=== PATIENT | female | born 1960 | race Caucasian/White ===

== ENCOUNTER 2024-09-08 14:27 | Emergency (ER) | payer OTHER, MEDICAID ==
[~2024-09-08] VITALS: Ht 167.6 cm; Wt 61.2 kg
[2024-09-08 14:57] VITALS: BP 160/76; PULSE 83; RESP 17; TEMP 97.8; O2SAT 94
[2024-09-08 17:59] VITALS: BP 136/74; PULSE 89; RESP 17; TEMP 98.2; O2SAT 98
== END 2024-09-08 18:00 | disposition home or self-care (01) ==
LOC: MED 14:27
DX: S01.01XA Laceration without foreign body of scalp, initial encounter (principal); M54.2 Cervicalgia; I10 Essential (primary) hypertension; E03.9 Hypothyroidism, unspecified; W01.198A Fall on same level from slipping, tripping and stumbling with subsequent striking against other object, initial encounter; Y92.89 Other specified places as the place of occurrence of the external cause; Y93.89 Activity, other specified; Y99.8 Other external cause status
CPT/HCPCS: 70450; 72125; 82948; 90471; 90715; 99285